=== PATIENT | female | born 1940 | race African-American/Black ===

== ENCOUNTER 2018-03-10 13:09 | Observation (INO) ==
[2018-03-10] MEDS ORDERED: Morphine Inj 4 MG/ML Vial IV.PUSH ONE (15:53)
[2018-03-10] MEDS ORDERED: Etomidate Inj 40 MG/20 ML Vial IV.PUSH ONE (15:59)
--- NOTE | 2018-03-10 16:22 | XR ---
EXAM DATE: 03/10/2018 3:53 PM EDT AGE/SEX: 78 years / Female INDICATIONS: Back pain for 2 weeks getting worse. CLINICAL DATA: This is the patient's initial encounter. Patient reports that signs and symptoms have been present for 2 weeks and indicates a pain score of 5/10. MEDICAL/SURGICAL HISTORY: . Hypertension. Seizures. Lumbar spine fracture. Hysterectomy. Pace maker. [place] [facility] [place]. . FINDINGS: Stable dual lead pacemaker in place. No significant new focal pleural or parenchymal opacities. Cardi omediastinal contours are within normal limits. Bony thorax is grossly intact. CONCLUSION: 1. No acute abnormality or significant interval change. Electronically signed by: Andrew Kulkarni MD 03/10/2018 4:21 PM EDT
[2018-03-10 16:40] LABS: Baso % (Auto) 0.3 % (0.0-2.0); Eos # (Auto) 0.2 th/mm3 (0.0-0.4); Eos % (Auto) 2.3 % (0.0-4.0); Hematocrit 38.3 % (35.0-46.0); Hemoglobin 12.1 gm/dL (11.6-15.3); Lymph # (Auto) 1.6 th/mm3 (1.0-4.8); Lymph % (Auto) 18.2 % (9.0-44.0); Mean Corpuscular HGB Conc 31.7 % (32.0-36.0); Mean Corpuscular Hemoglobin 27.1 pg (27.0-34.0); Mean Corpuscular Volume 85.5 fL (80.0-100.0); Mono # (Auto) 0.7 th/mm3 (0.0-0.9); Mono % (Auto) 8.1 % (0.0-8.0); Neut # (Auto) 6.1 th/mm3 (1.8-7.7); Neut % (Auto) 71.1 % (16.0-70.0); Platelet Count 207 th/mm3 (150-450); Red Blood Count 4.47 mil/mm3 (4.00-5.30); Red Cell Distribution Width 14.6 % (11.6-17.2); White Blood Count 8.6 th/mm3 (4.0-11.0)
--- NOTE | 2018-03-10 16:43 | P.CONNS ---
<Kymberly Harrison - Last Filed: 03/10/18 16:32> History of Present Illness Service: Neurosurgery Primary Care Provider: UNKNOWN History of Present Illness: Ms. Weiner is a 78 year old female who comes to the ED with complaints of 10/10 back pain. She reports she was recently evaluated here at [facility] on with complaints of low back pain. A CT of the lumbar spine was done which showed mild compression fracture at L4 without retropulsion or significant stenosis. She was discharged home with a TLSO brace. Ms. Weiner reports she has suffered previously from low back pain and headaches. She sees Dr. Rizzo for pain management and is being managed with Hydrocodone. She recently lifted a heavy mattress and she developed worsened pain in her low back. She states receiving shots in her low back towards the left side by a Dr. Hammer last Friday but she cannot tell me what kind of injections it is and it only made her pain worse, that was when she went to the ER this past weekend. She reports of pain located in the left lateral low back over the left SI joint region. She denies axial lumbar pain or pain radiating down her extremities. She denies paresthesias, focal weakness, bowel or bladder incontinence. She said she was wearing her TLSO brace at home even in bed. She denies any falls or any other accidents. She has a history of cranial surgery 30 years ago with metal in her head and was told she cannot undergo MRI scans. Neurosurgical evaluation was requested. Review of Systems Constitutional: Reports headache(s), Denies body ache(s), Denies chills, Denies fever(s) Cardiovascular: Denies chest pain, Denies shortness of breath Gastrointestinal: Denies abdominal pain Musculoskeletal: Reports back pain, Reports joint pain, Denies muscle weakness, Denies numbness, Denies radiating pain into limb, Denies tingling PMFSH - History History Provided By: Patient - Medical History Medical History: Medical History (Last Reviewed 03/10/18 @ 15:31 by Hyacinth Jones) Chronic back pain HBP (high blood pressure) History of hysterectomy Pacemaker Seizure - Tobacco History Second Hand Smoke Exposure: No Smoking Status: Never smoker - Alcohol History How Often Do You Have a Drink Containing Alcohol: Never - Substance Use History Substance History: No History of Abuse - Travel History Recent Travel in the [place] Within the Last 8 Weeks: No Recent Travel Out of the Country Within the Last 8 Weeks: No - Immunization History Tetanus Immunization: >5 Years Hx Influenza Vaccine This Season: No Medications and Allergies Allergies Allergy/AdvReac Type Severity Reaction Status Date / Time No Known Allergies Allergy Verified 03/10/18 14:55 Home Medications Medication Instructions Recorded Confirmed Type carbamazepine [Tegretol] 200 mg PO BID 03/07/18 03/10/18 History gabapentin [Neurontin] 300 mg PO BID 03/07/18 03/10/18 History lisinopril 10 mg PO DAILY 03/07/18 03/10/18 History oxycodone-acetaminophen [Percocet] 1 tab PO Q6H PRN 03/07/18 03/10/18 History Active Medications: Active Medications Sodium Chloride (Ns Flush) 2 ml IV.FLUSH UNSCH PRN PRN Reason: FLUSH AFTER USING IV ACCESS Last Admin: 03/10/18 16:16 Dose: 2 ml Exam Vital signs: Vital Signs 03/10/18 13:13 Temperature 98.6 F Pulse Rate 76 Respiratory Rate 18 Blood Pressure 132/67 Pulse Oximetry 98 Intake & Output 03/09/18 03/10/18 03/10/18 18:59 06:59 18:59 Weight 68.039 kg Narrative: GENERAL: Elderly female laying in stretcher bed in no acute distress. SKIN: Warm and dry. HEAD: Atraumatic. Normocephalic. EYES: Pupils equal and round. No scleral icterus. No injection or drainage. ENT: No nasal bleeding or discharge. Mucous membranes pink and moist. NECK: Trachea midline. No JVD. CARDIOVASCULAR: Regular rate and rhythm. RESPIRATORY: No accessory muscle use. Clear to auscultation. Breath sounds equal bilaterally. GASTROINTESTINAL: Abdomen soft, non-tender, nondistended. Hepatic and splenic margins not palpable. MUSCULOSKELETAL: Extremities without clubbing, cyanosis, or edema. No obvious deformities. Pain illicited in deep palpation over the left SI joint. No spinal deformities. NEUROLOGICAL: Awake and alert. No obvious cranial nerve deficits. Motor grossly within normal limits. 5/5 muscle strength in the arms and bilateral iliopsoas, quadriceps, hamstrings, tibialis anterior gastrocsoleus, and extensor hallucis longus. Normal speech. DTRs trace in knees and ankles. Plantars equivocal bilaterally. No ankle clonus. PSYCHIATRIC: Appropriate mood and affect; insight and judgment normal. <Eric Amaya - Last Filed: 03/11/18 08:43> History of Present Illness Primary Care Provider: UNKNOWN History of Present Illness: This is a 78 year old female with severe, 10/10 back pain. She has been recently evaluated here at [facility] on 03/07/18 for low back pain. A CT of the lumbar spine was done which showed mild compression fracture at L4 without retropulsion or significant stenosis. She was unable to undergp an MRI. She was discharged home with a TLSO brace. Ms. Weiner reports she has suffered previously from low back pain for ehich she sees Dr. Rizzo for pain management, and is being managed with Hydrocodone. She recently lifted a heavy mattress and she developed worsened pain in her low back. She states receiving shots in her low back towards the left side by a Dr. Hammer last Friday but she cannot tell me what kind of injections it is and it only made her pain worse, that was when she went to the ER this past weekend. She reports of pain located in the left lateral low back over the left SI joint region. She denies axial lumbar pain or pain radiating down her extremities. She denies paresthesias, focal weakness, bowel or bladder incontinence. She said she was wearing her TLSO brace at home even in bed. She denies any falls or any other accidents. She has a history of cranial surgery 30 years ago with metal in her head and was told she cannot undergo an MRI Neurosurgical consultation was requested. Review of Systems Constitutional: Reports headache(s), Denies anorexia, Denies body ache(s), Denies chills, Denies daytime sleepiness, Denies excessive sweating, Denies fatigue, Denies fever(s), Denies increased appetite, Denies lack of energy, Denies malaise, Denies night sweats, Denies weakness, Denies weight gain, Denies weight loss, Denies other Eyes: Denies blind spots, Denies blurry vision, Denies bulging eyes, Denies change in vision, Denies double vision, Denies discharge, Denies dry eyes, Denies floaters, Denies irritation, Denies itchy eyes, Denies loss of vision, Denies pain, Denies requires corrective lenses, Denies sensitivity to light, Denies other Ears, Nose, Mouth, and Throat: Denies abnormal hearing, Denies bleeding gums, Denies bad breath, Denies change in voice, Denies dental pain, Denies difficulty swallowing, Denies dizziness, Denies dry mouth, Denies ear discharge , Denies ear pain, Denies facial pain, Denies headache(s), Denies hearing loss, Denies hoarseness, Denies lip swelling, Denies nosebleed, Denies mouth lesions, Denies mouth pain, Denies nasal congestion, Denies nasal discharge, Denies nasal obstruction, Denies nasal trauma, Denies neck lump, Denies neck pain, Denies nose pain, Denies pain with swallowing, Denies poor balance, Denies post nasal drip, Denies ringing in the ears, Denies sinus pain, Denies sinus pressure , Denies sore throat, Denies throat swelling, Denies tongue swelling, Denies other Cardiovascular: Denies chest pain, Denies chest pain at rest, Denies chest pain with activity, Denies excessive sweating, Denies fainting, Denies fast heart rate, Denies foot swelling, Denies generalized swelling, Denies irregular heart rhythm, Denies leg pain with activity, Denies leg sores, Denies leg swelling, Denies lightheadedness, Denies radiating jaw, neck or arm pain, Denies rapid, pounding, or irregular heartbeat, Denies shortness of breath, Denies shortness of breath with activity, Denies shortness of breath when lying down, Denies shortness of breath causing sudden awakening, Denies slow heart rate, Denies other Respiratory: Denies change in phlegm color, Denies chest congestion, Denies cough, Denies coughing up blood, Denies excessive phlegm production, Denies pain on inspiration, Denies pain with cough, Denies shortness of breath, Denies shortness of breath with activity, Denies snoring, Denies stridor, Denies wheezing, Denies other Gastrointestinal: Denies abdominal pain, Denies belching, Denies black, tarry stools, Denies bloating, Denies bright, red blood in stools, Denies change in bowel habits, Denies constant urge to pass stool, Denies change in stools, Denies coffee ground vomit, Denies constipation, Denies cramping, Denies difficulty swallowing, Denies excessive passing of gas, Denies feeling full early, Denies heartburn, Denies incontinent of stools, Denies loose stools, Denies nausea, Denies pain with swallowing, Denies vomiting, Denies vomiting blood, Denies other Genitourinary: Denies abnormal periods, Denies abnormal vaginal bleeding, Denies absent period, Denies bleeding between periods, Denies blood in urine, Denies difficulty starting urination, Denies difficulty urinating, Denies dribbling after urination, Denies frequent nighttime urination, Denies genital itching, Denies genital lesions, Denies heavy periods, Denies hot flashes, Denies light periods, Denies nipple discharge, Denies painful intercourse, Denies painful periods, Denies painful urination, Denies pelvic pain, Denies prolapse symptoms, Denies sexual problems, Denies side pain, Denies urinary incontinence, Denies urinary urgency, Denies vaginal discharge, Denies vaginal dryness, Denies vaginal odor, Denies vaginal itching, Denies other Musculoskeletal: Reports back pain, Reports joint pain Skin/Breast: Denies acne, Denies bleeding lesions, Denies boil, Denies breast swelling, Denies breast skin changes, Denies breast pain, Denies breast lump, Denies change in breast shape, Denies change in hair, Denies change in skin color, Denies changing lesions, Denies dry skin, Denies excessive hair growth, Denies hair loss, Denies itching, Denies lesions, Denies nail changes, Denies new lesions, Denies nipple discharge, Denies non-healing lesions, Denies redness , Denies sensitivity to light, Denies rash, Denies skin pain, Denies skin ulcer , Denies sores, Denies stretch unger, Denies unusual bruising, Denies wounds, Denies yellowing of the skin, Denies other Neurologic: Denies abnormal hearing, Denies abnormal movements, Denies abnormal speech, Denies abnormal walking, Denies behavioral changes, Denies burning sensations, Denies confusion, Denies dizziness, Denies fainting, Denies frequent falls, Denies headache(s), Denies lack of coordination, Denies localized weakness, Denies loss of vision, Denies memory loss, Denies numbness, Denies other visual disturbances, Denies radiating pain, Denies restless legs, Denies convulsions, Denies seizure-like activity, Denies sensory deficit, Denies tingling, Denies tingling/numbness/burning sensations, Denies tremor(s), Denies unsteadiness, Denies weakness, Denies other Psychiatric: Denies abnormal sleep pattern, Denies anxiety, Denies behavioral changes, Denies change in appetite, Denies change in sex drive, Denies confusion , Denies depression, Denies difficulty concentrating, Denies hearing things others do not hear, Denies hopelessness, Denies irritability, Denies lack of enjoyment, Denies memory loss, Denies mood swings, Denies panic attacks, Denies paranoia, Denies seeing things others do not see, Denies sensing things others do not sense, Denies tactile hallucinations, Denies thoughts of hurting/killing others, Denies thoughts of hurting/killing yourself, Denies other Endocrine: Denies cold intolerance, Denies excessive sweating, Denies flushing, Denies heat intolerance, Denies increased hunger, Denies increased thirst, Denies increased urination, Denies rapid, pounding, or irregular heartbeat, Denies other PMFSH - History History Provided By: Patient - Medical History Medical History: Medical History (Last Reviewed 03/11/18 @ 08:40 by Eric Amaya MD) Chronic back pain HBP (high blood pressure) History of hysterectomy Pacemaker Seizure - Family History Family History: Family History (Last Updated 03/11/18 @ 08:40 by Eric Amaya MD) Other Family history non-contributory No pertinent family history - Social History I have reviewed the patient's Social History: Yes - Tobacco History Second Hand Smoke Exposure: No Tobacco Use In Past 30 Days: No Smoking Status: Never smoker - Alcohol History How Often Do You Have a Drink Containing Alcohol: Never - Substance Use History Substance History: No History of Abuse - Travel History Recent Travel in the [facility] Within the Last 8 Weeks: No Recent Travel Out of the Country Within the Last 8 Weeks: No Medications and Allergies Active Medications: Active Medications Carbamazepine (Tegretol) 200 mg PO BID [facility] Last Admin: 03/11/18 08:30 Dose: 200 mg Gabapentin (Neurontin) 300 mg PO BID [facility] Last Admin: 03/11/18 08:30 Dose: 300 mg Dextrose/Sodium Chloride (D5w/Normal Saline Inj) 1,000 mls @ 84 mls/hr IV.CONT .[id number] [facility] Last Admin: 03/11/18 08:29 Dose: Not Given Ceftriaxone Sodium 1,000 mg/ (Sodium Chloride) 100 mls @ 200 mls/hr IV.SIG Q24H [facility] Last Infusion: 03/10/18 22:30 Dose: Infused Morphine Sulfate (Morphine Inj) 2 mg IV.PUSH Q4H PRN PRN Reason: pain level 3-10 Sodium Chloride (Ns Flush) 2 ml IV.FLUSH BID [facility] Last Admin: 03/11/18 08:30 Dose: Not Given Sodium Chloride (Ns Flush) 2 ml IV.FLUSH PRN PRN PRN Reason: FLUSH AFTER USING IV ACCESS Exam Vital signs: Vital Signs 03/10/18 13:13 03/10/18 15:53 03/10/18 16:00 Temperature 98.6 F 97.8 F Pulse Rate 76 59 L 59 L Respiratory Rate 18 18 Blood Pressure 132/67 154/67 H Pulse Oximetry 98 98 99 03/10/18 16:20 03/10/18 18:21 03/10/18 20:00 Temperature 97.8 F Pulse Rate 60 Respiratory Rate 17 16 Blood Pressure 140/83 Pulse Oximetry 98 95 03/10/18 21:02 03/10/18 22:29 03/11/18 00:00 Temperature 97.7 F 97.7 F Pulse Rate 63 73 Respiratory Rate 16 17 Blood Pressure 141/62 H 98/56 L Pulse Oximetry 94 L 95 95 03/11/18 05:10 03/11/18 07:32 Temperature 98.4 F 97.5 F L Pulse Rate 66 65 Respiratory Rate 16 20 Blood Pressure 114/53 L 113/55 L Pulse Oximetry 96 99 Intake & Output 03/10/18 03/11/18 03/11/18 18:59 06:59 18:59 Intake Total 100 / 100 Output Total 500 / 500 Balance -500 / -500 100 / 100 Weight 68.039 kg Intake: IV 100 / 100 Rocephin Inj 1,000 MG In NS Inj 100 / 100 100 ML @ 200 mls/hr IV.SIG Q24H [facility] Rx#:[id number] Output: Urine 500 / 500 Other: # Voids 1 2 Date of Last Bowel Movement 03/10/18 Narrative: GENERAL: Ms Weiner is in no acute distress. SKIN: Warm and dry. HEAD: Atraumatic. Normocephalic. EYES: Pupils equal and round. No scleral icterus. No injection or drainage. ENT: No nasal bleeding or discharge. Mucous membranes pink and moist. NECK: Trachea midline. No JVD. CARDIOVASCULAR: Regular rate and rhythm. RESPIRATORY: No accessory muscle use. Clear to auscultation. Breath sounds equal bilaterally. GASTROINTESTINAL: Abdomen soft, non-tender, nondistended. Hepatic and splenic margins not palpable. MUSCULOSKELETAL: Extremities without clubbing, cyanosis, or edema. No obvious deformities. Pain illicited in deep palpation over the left SI joint. No spinal deformities. NEUROLOGICAL: Awake and alert. No obvious cranial nerve deficits. Motor grossly within normal limits. 5/5 muscle strength in the arms and bilateral iliopsoas, quadriceps, hamstrings, tibialis anterior gastrocsoleus, and extensor hallucis longus. Normal speech. DTRs trace in knees and ankles. Plantars equivocal bilaterally. No ankle clonus. Results - Laboratory Findings CBC and BMP: 03/10/18 16:00 03/11/18 03:20 Abnormal lab findings: Abnormal Labs 03/10/18 03/10/18 03/10/18 16:00 16:00 18:00 MCHC 31.7 L Neut % (Auto) 71.1 H [place] % (Auto) 8.1 H Sodium 128 L Potassium 6.2 H Chloride 94 L BUN 46 H Creatinine 1.27 H Estimated GFR 49 L Alkaline Phosphatase 159 H Urine Clarity Cloudy H Ur Leukocyte Esterase Large H Urine WBC 177 H Urine Bacteria Many H Urine Mucus Few H 03/11/18 03:20 MCHC Neut % (Auto) [place] % (Auto) Sodium 128 L Potassium 5.3 H D Chloride 92 L BUN 48 H Creatinine 1.42 H Estimated GFR 43 L Alkaline Phosphatase 148 H Urine Clarity Ur Leukocyte Esterase Urine WBC Urine Bacteria Urine Mucus Assessment and Plan - Plan Neuro: neuro checks in a serial fashion. Possible pain related to a L4 fracture , versus pain related to strain in her sacroiliac joint. Recommend upright flexion extension xrays Pulmonary: aggressive pulmonary toilette, nasotracheal suction, and breathing treatments with nebulizers. Daily PT and OT Renal: monitor closely urine output, BUN and creatinine Endocrine: Monitor serial Acu checks and SSI as needed in detail ID monitor for signs of infection Protonix for stress ulcer prophylaxis Carmelo hose and SCD's for DVT prophylaxis Further recommendations will be provided depending on the patient's clinical evaluation and follow up studies.
[2018-03-10 16:58] LABS: Alkaline Phosphatase 159 U/L (45-117); Total Protein 8.1 g/dL (6.4-8.2)
[2018-03-10 17:00] LABS: Alanine Aminotransferase 38 U/L (10-53); Albumin 3.5 g/dL (3.4-5.0); Anion Gap 8 meq/L (5-15); Aspartate Aminotransferase 31 U/L (15-37); Blood Urea Nitrogen 46 mg/dL (7-18); Calcium 10.1 mg/dL (8.5-10.1); Carbon Dioxide 26.1 meq/L (21.0-32.0); Chloride 94 meq/L (98-107); Glomerular Filtration Rate 49 mL/min (>89); Glucose,Random 90 mg/dL (74-106); Potassium 6.2 meq/L (3.5-5.1); Sodium 128 meq/L (136-145)
--- NOTE | 2018-03-10 17:28 | ED ---
HPI General Chief complaint: Back Pain/Injury Stated complaint: Back Pain Time Seen by Provider: 03/10/18 14:56 History of Present Illness HPI narrative: Patient 78-year-old female diagnosed with compression fracture of L4 seemingly without injury by me a few days ago who presents emergency department for evaluation of continued back pain despite pain medicine. She called her primary care physician who urged her to return to the emergency department. She is also trying to get into some spinal surgeons without success. Pain is moderate, not associated with any weakness of lower extremities, no numbness and tingling over her genitalia, no saddle anesthesia, no difficulty urinating. Related Data Home Medications Medication Instructions Recorded Confirmed carbamazepine [Tegretol] 200 mg PO TID 03/07/18 03/11/18 gabapentin [Neurontin] 300 mg PO BID 03/07/18 03/10/18 lisinopril 10 mg PO DAILY 03/07/18 03/10/18 oxycodone-acetaminophen [Percocet] 1 tab PO Q6H PRN 03/07/18 03/10/18 levothyroxine 25 mcg PO DAILY 03/11/18 03/11/18 metoprolol tartrate 25 mg PO BID 03/11/18 03/11/18 primidone 250 mg PO HS 03/11/18 03/11/18 Previous Rx's Medication Instructions Recorded hydrocodone-acetaminophen [[place]] 1 tab PO Q6H PRN #20 tab 03/11/18 Allergies Allergy/AdvReac Type Severity Reaction Status Date / Time No Known Allergies Allergy Verified 03/10/18 14:55 Review of Systems ROS: all other systems reviewed are negative Neurologic Denies numbness and Denies tingling PMFSH Family History Family History Other Family history non-contributory No pertinent family history Social History Social History Substance History: No History of Abuse Second Hand Smoke Exposure: No Smoking Status: Never smoker How Often Do You Have a Drink Containing Alcohol: Never Recent Travel in [place] within the Last 8 Weeks: No Recent Out of Country Travel within the Last 8 Weeks: No Immunization History Tetanus Immunization: >5 Years Hx Influenza Vaccine This Season: No Exam Narrative Exam Narrative: GENERAL: Well-developed quite pleasant female in no distress. SKIN: Focused skin assessment warm/dry. HEAD: Atraumatic. Normocephalic. EYES: Pupils equal and round. No scleral icterus. No injection or drainage. ENT: No nasal bleeding or discharge. Mucous membranes pink and moist. NECK: Trachea midline. No JVD. CARDIOVASCULAR: Regular rate and rhythm. No murmur appreciated. RESPIRATORY: No accessory muscle use. Clear to auscultation. Breath sounds equal bilaterally. GASTROINTESTINAL: Abdomen soft, non-tender, nondistended. Hepatic and splenic margins not palpable. MUSCULOSKELETAL: No obvious deformities. No clubbing. No cyanosis. No edema. There is still some minimal midline tenderness of the lumbar spine and the lower portions. Pulse motor and sensory intact distally in all 4 extremities. NEUROLOGICAL: Awake and alert. No obvious cranial nerve deficits. Motor grossly within normal limits. Normal speech. PSYCHIATRIC: Appropriate mood and affect; insight and judgment normal. Course Initial Documented Vital Signs Temperature 98.6 F 03/10/18 13:13 Pulse Rate 76 03/10/18 13:13 Respiratory Rate 18 03/10/18 13:13 Blood Pressure 132/67 03/10/18 13:13 Pulse Oximetry 98 03/10/18 13:13 Last Documented Vital Signs Temperature 97.5 F L 03/11/18 11:28 Pulse Rate 83 03/11/18 11:28 Respiratory Rate 20 03/11/18 11:28 Blood Pressure 147/67 H 03/11/18 11:28 Pulse Oximetry 96 03/11/18 11:28 Medical Decision Making MDM Narrative Medical decision making narrative: Patient seen and examined by me, continued pain after I diagnosed with an L4 fracture a few days ago. Please see my note from a few days ago, CAT scan. She is neurologically intact, no red flag signs symptoms for cauda equina. Discussed with Dr. Amaya who would like the patient placed obscure his consultation. Think that is reasonable. Awaiting medicine to call back to admit Medical Screen Exam Complete: Yes Emergency Medical Condition: Yes Lab Data Result diagrams: 03/10/18 16:00 03/11/18 03:20 Lab Results 03/10/18 03/10/18 03/10/18 Range/Units 16:00 16:00 18:00 WBC 8.6 (4.0-11.0) th/mm3 RBC 4.47 (4.00-5.30) mil/mm3 Hgb 12.1 (11.6-15.3) gm/dL Hct 38.3 (35.0-46.0) % MCV 85.5 (80.0-100.0) fL MCH 27.1 (27.0-34.0) pg MCHC 31.7 L (32.0-36.0) % RDW 14.6 (11.6-17.2) % Plt Count 207 (150-450) th/mm3 MPV 8.0 (7.0-11.0) fL Neut % (Auto) 71.1 H (16.0-70.0) % Lymph % (Auto) 18.2 (9.0-44.0) % [place] % (Auto) 8.1 H (0.0-8.0) % Eos % (Auto) 2.3 (0.0-4.0) % Baso % (Auto) 0.3 (0.0-2.0) % Neut # (Auto) 6.1 (1.8-7.7) th/mm3 Lymph # (Auto) 1.6 (1.0-4.8) th/mm3 [place] # (Auto) 0.7 (0.0-0.9) th/mm3 Eos # (Auto) 0.2 (0.0-0.4) th/mm3 Baso # (Auto) 0.0 (0.0-0.2) th/mm3 WBC Differential . Differential Comment Auto diff final Sodium 128 L (136-145) meq/L Potassium 6.2 H (3.5-5.1) meq/L Chloride 94 L (98-107) meq/L Carbon Dioxide 26.1 (21.0-32.0) meq/L Anion Gap 8 (5-15) meq/L BUN 46 H (7-18) mg/dL Creatinine 1.27 H (0.50-1.00) mg/dL Estimated GFR 49 L (>89) mL/min Random Glucose 90 (74-106) mg/dL Calcium 10.1 (8.5-10.1) mg/dL Total Bilirubin 0.2 (0.2-1.0) mg/dL AST 31 (15-37) U/L ALT 38 (10-53) U/L Alkaline Phosphatase 159 H (45-117) U/L Total Protein 8.1 (6.4-8.2) g/dL Albumin 3.5 (3.4-5.0) g/dL Urine Color Red (Yellw/Straw) Urine Clarity Cloudy H (Clear) Urine pH 6.0 (5.0-8.5) Ur Specific [place] 1.013 (1.002-1.035) Urine Protein Negative (Neg-Trace) mg/dL Urine Glucose (UA) Negative (Negative) mg/dL Urine Ketones Negative (Negative) mg/dL Urine Occult Blood Negative (Negative) Urine Nitrate Negative (Negative) Urine Bilirubin Negative (Negative) Urine Urobilinogen Less than 2 (Less than 2) mg/dL Ur Leukocyte Esterase Large H (Negative) Urine RBC 3 (0-3) /hpf Urine WBC 177 H (0-5) /hpf Ur Squamous Epith Cells 4 (0-5) /hpf Urine Bacteria Many H (None) /hpf Urine Mucus Few H (Occasional) /lpf Ur Microscopic Review Not Reportable 03/11/18 Range/Units 03:20 WBC (4.0-11.0) th/mm3 RBC (4.00-5.30) mil/mm3 Hgb (11.6-15.3) gm/dL Hct (35.0-46.0) % MCV (80.0-100.0) fL MCH (27.0-34.0) pg MCHC (32.0-36.0) % RDW (11.6-17.2) % Plt Count (150-450) th/mm3 MPV (7.0-11.0) fL Neut % (Auto) (16.0-70.0) % Lymph % (Auto) (9.0-44.0) % [place] % (Auto) (0.0-8.0) % Eos % (Auto) (0.0-4.0) % Baso % (Auto) (0.0-2.0) % Neut # (Auto) (1.8-7.7) th/mm3 Lymph # (Auto) (1.0-4.8) th/mm3 [place] # (Auto) (0.0-0.9) th/mm3 Eos # (Auto) (0.0-0.4) th/mm3 Baso # (Auto) (0.0-0.2) th/mm3 WBC Differential Differential Comment Sodium 128 L (136-145) meq/L Potassium 5.3 H D (3.5-5.1) meq/L Chloride 92 L (98-107) meq/L Carbon Dioxide 28.3 (21.0-32.0) meq/L Anion Gap 8 (5-15) meq/L BUN 48 H (7-18) mg/dL Creatinine 1.42 H (0.50-1.00) mg/dL Estimated GFR 43 L (>89) mL/min Random Glucose 87 (74-106) mg/dL Calcium 9.7 (8.5-10.1) mg/dL Total Bilirubin 0.3 (0.2-1.0) mg/dL AST 26 (15-37) U/L ALT 31 (10-53) U/L Alkaline Phosphatase 148 H (45-117) U/L Total Protein 7.8 (6.4-8.2) g/dL Albumin 3.4 (3.4-5.0) g/dL Urine Color (Yellw/Straw) Urine Clarity (Clear) Urine pH (5.0-8.5) Ur Specific [place] (1.002-1.035) Urine Protein (Neg-Trace) mg/dL Urine Glucose (UA) (Negative) mg/dL Urine Ketones (Negative) mg/dL Urine Occult Blood (Negative) Urine Nitrate (Negative) Urine Bilirubin (Negative) Urine Urobilinogen (Less than 2) mg/dL Ur Leukocyte Esterase (Negative) Urine RBC (0-3) /hpf Urine WBC (0-5) /hpf Ur Squamous Epith Cells (0-5) /hpf Urine Bacteria (None) /hpf Urine Mucus (Occasional) /lpf Ur Microscopic Review Imaging Data Radiologist's impression: Lumbar Spine X-Ray 03/10/18 00:00 CONCLUSION: 1. Normal alignment of the L4 vertebral body in neutral, flexion, extension. 2. Grade 1 anterolisthesis of L5 in flexion only. Chest X-Ray 03/10/18 15:53 CONCLUSION: 1. No acute abnormality or significant interval change. Discharge Plan Discharge Disposition Patient Disposition: 01 Discharge Home Discharge Condition Condition: Stable Discharge Order Discharge Orders: Discharge Order (Routine); Ordered 03/11/18 Ordered By: Sharri Salazar Neurosurgery Clear for Discharge (Routine); Ordered 03/11/18 Ordered By: Kymberly Harrison Discharge Details Anticipated Discharge Date: 03/11/18 Physicians Team ED Provider: Kennedy Shaffer Primary Care Provider: UNKNOWN, Attending Provider: German Flanagan Other Providers: Eric Amaya ED Status: Left Department Discharge Information Discharge Date/Time: 03/10/18 20:39
[2018-03-10 18:21] LABS: Bacteria,Urine Many /hpf; Bilirubin,Urine Negative (Negative); Clarity,Urine Cloudy (Clear); Color,Urine Red (Yellw/Straw); Glucose,Urine (UA) Negative (Negative); Leukocyte Esterase,Urine Large (Negative); Mucus,Urine Few /lpf (Occasional); Nitrite,Urine Negative (Negative); Specific Gravity,Urine 1.013 (1.002-1.035); Squamous Epithelial Cell,Urine 4 /hpf (0-5)
[2018-03-10] MEDS ORDERED: Sodium Chloride 0.9% 2 ML Flush PRN IV.FLUSH (19:08)
--- NOTE | 2018-03-10 19:21 | XR ---
EXAM DATE: 03/10/2018 12:00 AM EDT AGE/SEX: 78 years / Female INDICATIONS: Evaluate L4 fracture. CLINICAL DATA: This is the patient's sequela encounter. Patient reports that signs and symptoms have been present for 3 days and indicates a pain score of 5/10. MEDICAL/SURGICAL HISTORY: . Hypertension. Seizures. . Hysterectomy. COMPARISON: No prior exams available for comparison. FINDINGS: Neutral, flexion, and extension views of the lumbar spine performed. 30% compression deformities of t he superior endplate of L4 and L5 is similar in appearance to recent CT. There is normal alignment of the vertebral bodies of the lumbar spine in neutral position. The alignment of L4 is maintained in e xtension and flexion. At L5-S1, there is a 5 mm anterolisthesis of L5 in flexion. CONCLUSION: 1. Normal alignment of the L4 vertebral body in neutral, flexion, extension. 2. Grade 1 anterolisthesis of L5 in flexion only. Electronically signed by: Lj Hugo MD 03/10/2018 7:20 PM EDT
[2018-03-10] MEDS ORDERED: Morphine Sulfate Inj 2 MG/ML Vial IV.PUSH PRN (20:58)
[2018-03-10] MEDS: Dextrose 5%/NaCl 0.9% Inj 1,000 ML IV.CONT SCH (21:58)
[2018-03-10] MEDS: Gabapentin 300 MG Capsule PO SCH (21:59)
[2018-03-10] MEDS: carBAMazepine 200 MG Tablet PO SCH (21:59)
[2018-03-10] MEDS: Sodium Chloride 0.9% 2 ML Flush BID IV.FLUSH SCH (22:00)
[2018-03-11 06:06] LABS: Alanine Aminotransferase 31 U/L (10-53); Albumin 3.4 g/dL (3.4-5.0); Alkaline Phosphatase 148 U/L (45-117); Anion Gap 8 meq/L (5-15); Aspartate Aminotransferase 26 U/L (15-37); Blood Urea Nitrogen 48 mg/dL (7-18); Calcium 9.7 mg/dL (8.5-10.1); Carbon Dioxide 28.3 meq/L (21.0-32.0); Chloride 92 meq/L (98-107); Glomerular Filtration Rate 43 mL/min (>89); Glucose,Random 87 mg/dL (74-106); Potassium 5.3 meq/L (3.5-5.1); Sodium 128 meq/L (136-145); Total Protein 7.8 g/dL (6.4-8.2)
[2018-03-11 07:35] VITALS: RESP 20; TEMP 97.5
[2018-03-11] MEDS: Dextrose 5%/NaCl 0.9% Inj 1,000 ML IV.CONT SCH (08:29)
[2018-03-11] MEDS: Sodium Chloride 0.9% 2 ML Flush BID IV.FLUSH SCH (08:30)
[2018-03-11] MEDS: carBAMazepine 200 MG Tablet PO SCH (08:30)
[2018-03-11] MEDS: Gabapentin 300 MG Capsule PO SCH (08:30)
--- NOTE | 2018-03-11 09:36 | P.HP ---
<Sharri Salazar - Last Filed: 03/11/18 12:25> History of Present Illness Primary Care Physician: Dr. 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 Patient initially presented to [facility] emergency department on for evaluation of 03/25 lower back pain. At that time patient reported she has had ongoing back pain for years but lifted a heavy mattress and at that point the back pain worsened. Patient also reported she had spinal injections by outpatient Dr. Rizzo 03/03/18 which did not relieve the pain therefore she proceeded to the emergency department for further evaluation and treatment. At that time patient was found to have a mild acute L4 compression fracture as well as nonacute L5 superior endplate compression fracture and was discharged home with TLSO brace. Patient returned to the [facility] emergency department 03/10/2018 with complaints of increasing back pain. Patient denies radiation of pain down her spine, numbness or tingling around her groin or genital area, saddle anesthesia, difficulties with urination or incontinence, difficulties in passing stool or incontinence. Patient also denies shortness of breath chest pain nausea vomiting diarrhea constipation fevers or chills. PMH: arthritis, cervical radiculopathy, chronic pain, diverticulosis, gastric reflux , hypertension, hyperparathyroidism, hypothyroidism, lumbar degenerative disc disease, lumbar radiculopathy, paroxysmal SVT, sick sinus syndrome s/p cardiac pacemaker, seizure disorder and osteoporosis PSxH: Right temporal craniotomy subdural bur holes, complete colonoscopy, hip surgery , hysterectomy, spinal injections, cardiac pacemaker 07/06/13 Social history: Patient is lives alone Denies EtOH use Former tobacco use FMH: Cardiac disorder and cataracts - Diagnosis (1) Closed compression fracture of L4 lumbar vertebra Review of Systems All other systems reviewed negative except as stated in HPI [facility] - History History Provided By: Patient - Medical History Medical History: Medical History (Last Reviewed 03/11/18 @ 08:59 by Scottie Rolle) Chronic back pain HBP (high blood pressure) History of hysterectomy Pacemaker Seizure - Family History Family History: Family History (Last Updated 03/11/18 @ 08:40 by Eric Amaya MD) Other Family history non-contributory No pertinent family history - Tobacco History Second Hand Smoke Exposure: No Tobacco Use In Past 30 Days: No Smoking Status: Never smoker - Alcohol History How Often Do You Have a Drink Containing Alcohol: Never - Substance Use History Substance History: No History of Abuse - Travel History Recent Travel in the [place] Within the Last 8 Weeks: No Recent Travel Out of the Country Within the Last 8 Weeks: No - Immunization History Tetanus Immunization: >5 Years Hx Influenza Vaccine This Season: No Medications and Allergies Allergies Allergy/AdvReac Type Severity Reaction Status Date / Time No Known Allergies Allergy Verified 03/10/18 14:55 Home Medications Medication Instructions Recorded Confirmed Type carbamazepine [Tegretol] 200 mg PO TID 03/07/18 03/11/18 History gabapentin [Neurontin] 300 mg PO BID 03/07/18 03/10/18 History lisinopril 10 mg PO DAILY 03/07/18 03/10/18 History oxycodone-acetaminophen [Percocet] 1 tab PO Q6H PRN 03/07/18 03/10/18 History levothyroxine 25 mcg PO DAILY 03/11/18 03/11/18 History metoprolol tartrate 25 mg PO BID 03/11/18 03/11/18 History primidone 250 mg PO HS 03/11/18 03/11/18 History Active Medications: Active Medications Carbamazepine (Tegretol) 200 mg PO BID [facility] Last Admin: 03/11/18 08:30 Dose: 200 mg Gabapentin (Neurontin) 300 mg PO BID [facility] Last Admin: 03/11/18 08:30 Dose: 300 mg Dextrose/Sodium Chloride (D5w/Normal Saline Inj) 1,000 mls @ 84 mls/hr IV.CONT .[id number] [facility] Last Admin: 03/11/18 08:29 Dose: Not Given Ceftriaxone Sodium 1,000 mg/ (Sodium Chloride) 100 mls @ 200 mls/hr IV.SIG Q24H [facility] Last Infusion: 03/10/18 22:30 Dose: Infused Morphine Sulfate (Morphine Inj) 2 mg IV.PUSH Q4H PRN PRN Reason: pain level 3-10 Sodium Chloride (Ns Flush) 2 ml IV.FLUSH BID [facility] Last Admin: 03/11/18 08:30 Dose: Not Given Sodium Chloride (Ns Flush) 2 ml IV.FLUSH PRN PRN PRN Reason: FLUSH AFTER USING IV ACCESS Exam Vital signs: Vital Signs 03/10/18 13:13 03/10/18 15:53 03/10/18 16:00 Temperature 98.6 F 97.8 F Pulse Rate 76 59 L 59 L Respiratory Rate 18 18 Blood Pressure 132/67 154/67 H Pulse Oximetry 98 98 99 03/10/18 16:20 03/10/18 18:21 03/10/18 20:00 Temperature 97.8 F Pulse Rate 60 Respiratory Rate 17 16 Blood Pressure 140/83 Pulse Oximetry 98 95 03/10/18 21:02 03/10/18 22:29 03/11/18 00:00 Temperature 97.7 F 97.7 F Pulse Rate 63 73 Respiratory Rate 16 17 Blood Pressure 141/62 H 98/56 L Pulse Oximetry 94 L 95 95 03/11/18 05:10 03/11/18 07:32 Temperature 98.4 F 97.5 F L Pulse Rate 66 65 Respiratory Rate 16 20 Blood Pressure 114/53 L 113/55 L Pulse Oximetry 96 99 Intake & Output 03/10/18 03/11/18 03/11/18 18:59 06:59 18:59 Intake Total 100 / 100 Output Total 500 / 500 Balance -500 / -500 100 / 100 Weight 68.039 kg Intake: IV 100 / 100 Rocephin Inj 1,000 MG In NS Inj 100 / 100 100 ML @ 200 mls/hr IV.SIG Q24H [facility] Rx#:[id number] Output: Urine 500 / 500 Other: # Voids 1 2 Date of Last Bowel Movement 03/10/18 Narrative: GENERAL: This is a well-nourished, well-developed patient, in no apparent distress. CARDIOVASCULAR: Regular rate and rhythm RESPIRATORY: Clear to auscultation. Breath sounds equal bilaterally. GASTROINTESTINAL: Abdomen soft, non-tender, nondistended. Normal active bowel sounds MUSCULOSKELETAL: Extremities without clubbing, cyanosis, or edema. NEURO: Alert & Oriented x4 to person, place, time, situation. Moves all ext x4 Results - Labs CBC & Chem 7: 03/10/18 16:00 03/11/18 03:20 Labs: Laboratory Results - last 24 hr 03/10/18 03/10/18 03/10/18 16:00 16:00 18:00 WBC 8.6 RBC 4.47 Hgb 12.1 Hct 38.3 MCV 85.5 MCH 27.1 MCHC 31.7 L RDW 14.6 Plt Count 207 MPV 8.0 Neut % (Auto) 71.1 H Lymph % (Auto) 18.2 Jenkins % (Auto) 8.1 H Eos % (Auto) 2.3 Baso % (Auto) 0.3 Neut # (Auto) 6.1 Lymph # (Auto) 1.6 Jenkins # (Auto) 0.7 Eos # (Auto) 0.2 Baso # (Auto) 0.0 WBC Differential . Differential Comment Auto diff final Sodium 128 L Potassium 6.2 H Chloride 94 L Carbon Dioxide 26.1 Anion Gap 8 BUN 46 H Creatinine 1.27 H Estimated GFR 49 L Random Glucose 90 Calcium 10.1 Total Bilirubin 0.2 AST 31 ALT 38 Alkaline Phosphatase 159 H Total Protein 8.1 Albumin 3.5 Urine Color Red Urine Clarity Cloudy H Urine pH 6.0 Ur Specific [place] 1.013 Urine Protein Negative Urine Glucose (UA) Negative Urine Ketones Negative Urine Occult Blood Negative Urine Nitrate Negative Urine Bilirubin Negative Urine Urobilinogen Less than 2 Ur Leukocyte Esterase Large H Urine RBC 3 Urine WBC 177 H Ur Squamous Epith Cells 4 Urine Bacteria Many H Urine Mucus Few H Ur Microscopic Review Not Reportable 03/11/18 03:20 WBC RBC Hgb Hct MCV MCH MCHC RDW Plt Count MPV Neut % (Auto) Lymph % (Auto) Jenkins % (Auto) Eos % (Auto) Baso % (Auto) Neut # (Auto) Lymph # (Auto) Jenkins # (Auto) Eos # (Auto) Baso # (Auto) WBC Differential Differential Comment Sodium 128 L Potassium 5.3 H D Chloride 92 L Carbon Dioxide 28.3 Anion Gap 8 BUN 48 H Creatinine 1.42 H Estimated GFR 43 L Random Glucose 87 Calcium 9.7 Total Bilirubin 0.3 AST 26 ALT 31 Alkaline Phosphatase 148 H Total Protein 7.8 Albumin 3.4 Urine Color Urine Clarity Urine pH Ur Specific [place] Urine Protein Urine Glucose (UA) Urine Ketones Urine Occult Blood Urine Nitrate Urine Bilirubin Urine Urobilinogen Ur Leukocyte Esterase Urine RBC Urine WBC Ur Squamous Epith Cells Urine Bacteria Urine Mucus Ur Microscopic Review - Imaging Impressions Lumbar Spine X-Ray 03/10/18 00:00 CONCLUSION: 1. Normal alignment of the L4 vertebral body in neutral, flexion, extension. 2. Grade 1 anterolisthesis of L5 in flexion only. Chest X-Ray 03/10/18 15:53 CONCLUSION: 1. No acute abnormality or significant interval change. Caprini VTE Risk Assessment Caprini VTE Risk Assessment: Moderate/High Risk (score >= 2) Caprini Risk Assessment Model: Point Value = 1 Point Value = 2 Point Value = 3 Point Value = 5 Age 41-60 Minor surgery BMI > 25 kg/m2 Swollen legs Varicose veins or History of unexplained or recurrent spontaneous Oral contraceptives or hormone replacement Sepsis (< 1 month) Serious lung disease, including pneumonia (< 1 month) Abnormal pulmonary function Acute myocardial infarction Congestive heart failure (< 1 month) History of inflammatory bowel disease Medical patient at bed rest Age 61-74 Arthroscopic surgery Major open surgery (> 45 min) Laparoscopic surgery (> 45 min) Malignancy Confined to bed (> 72 hours) Immobilizing plaster cast Central venous access Age >= 75 History of VTE Family history of VTE Factor V Leiden Prothrombin [id number] Lupus anticoagulant Anticardiolipin antibodies Elevated serum homocysteine Heparin-induced thrombocytopenia Other congenital or acquired thrombophilia Stroke (< 1 month) Elective arthroplasty Hip, pelvis, or leg fracture Acute spinal cord injury (< 1 month) Prophylaxis Regimen: Total Risk Factor Score Risk Level Prophylaxis Regimen 0-1 Low Early ambulation 2 Moderate Order ONE of the following: *Sequential Compression Device (SCD) *Heparin 5000 units SQ BID 3-4 Higher Order ONE of the following medications: *Heparin 5000 units SQ TID *Enoxaparin/Lovenox 40 mg SQ daily (WT < 150 kg, CrCl > 30 mL/min) *Enoxaparin/Lovenox 30 mg SQ daily (WT < 150 kg, CrCl > 10-29 mL/min) *Enoxaparin/Lovenox 30 mg SQ BID (WT < 150 kg, CrCl > 30 mL/min) AND/OR *Sequential Compression Device (SCD) 5 or more Highest Order ONE of the following medications: *Heparin 5000 units SQ TID (Preferred with Epidurals) *Enoxaparin/Lovenox 40 mg SQ daily (WT < 150 kg, CrCl > 30 mL/min) *Enoxaparin/Lovenox 30 mg SQ daily (WT < 150 kg, CrCl > 10-29 mL/min) *Enoxaparin/Lovenox 30 mg SQ BID (WT < 150 kg, CrCl > 30 mL/min) AND *Sequential Compression Device (SCD) Assessment and Plan - Assessment (1) Closed compression fracture of L4 lumbar vertebra Code(s): S32.040A - Wedge compression fracture of fourth lumbar vertebra, initial encounter for closed fracture Status: Acute Plan: Acute L4 compression fracture Lower back pain 78-year-old female patient with past medical history which includes chronic lower back pain which worsened after lifting a heavy mattress. Patient was treated by outpatient provider Dr. Rizzo on 03/03/18 with spinal injection which did not relieve the pain therefore she proceeded to the emergency department initially on 03/07/2018 for further evaluation and treatment. At that time patient was found to have a mild acute L4 compression fracture as well as nonacute L5 superior endplate compression fracture and was discharged home with TLSO brace. Patient returned to the [facility] emergency department 03/10/2018 with complaints of increasing back pain. - Consult was placed to neurosurgery Dr. Amaya who recommends upright flexion extension x-rays -Lumbar flexion-extension x-rays reviewed and reveals 1. Normal alignment of the L4 vertebral body in neutral, flexion, extension. 2. Grade 1 anterolisthesis of L5 in flexion only. - Consultation placed to physical therapy - Continue TLSO brace while out of bed - per Neurosurgery note: flexion extension xrays reviewed by Dr. Amaya clear to dc from NRS standpoint she may follow up in the office in 2 months with follow up xrays lumbar spine dw pt activity restrictions lumbar brace when oob Seizure disorder Continue patient's home primidone 250 mg p.o. nightly, Tegretol 200 mg p.o. 3 times daily and gabapentin 300 mg p.o. twice daily Hypertension will hold patient's lisinopril 10 mg p.o. daily, as she has had episodes of hypotension Paroxysmal SVT will hold patient's home metoprolol 25 mg twice daily, as she has had episodes of bradycardia DVT prophylaxis with SCDs Patient offered SNF. Patient planning to go to [place] to stay with family and is refusing SNF placement. DC home with family and HHC/PT on a heart healthy diet Patient to wear TLSO brace when OOB patient to follow up with PCP in 1 week and Neurosurgery in 2 months <German Flanagan - Last Filed: 03/21/18 22:35> History of Present Illness Primary Care Physician: UNKNOWN - Diagnosis (1) Closed compression fracture of L4 lumbar vertebra PMFSH - Medical History Medical History: Medical History (Last Reviewed 03/11/18 @ 08:59 by Scottie Rolle) Chronic back pain HBP (high blood pressure) History of hysterectomy Pacemaker Seizure - Family History Family History: Family History (Last Updated 03/11/18 @ 08:40 by Eric Amaya MD) Other Family history non-contributory No pertinent family history Medications and Allergies Active Medications: Active Medications Carbamazepine (Tegretol) 200 mg PO BID [facility] Last Admin: 03/11/18 08:30 Dose: 200 mg Gabapentin (Neurontin) 300 mg PO BID [facility] Last Admin: 03/11/18 08:30 Dose: 300 mg Dextrose/Sodium Chloride (D5w/Normal Saline Inj) 1,000 mls @ 84 mls/hr IV.CONT .[id number] [facility] Last Infusion: 03/11/18 13:32 Dose: Infused Ceftriaxone Sodium 1,000 mg/ (Sodium Chloride) 100 mls @ 200 mls/hr IV.SIG Q24H [facility] Last Infusion: 03/10/18 22:30 Dose: Infused Morphine Sulfate (Morphine Inj) 2 mg IV.PUSH Q4H PRN PRN Reason: pain level 3-10 Sodium Chloride (Ns Flush) 2 ml IV.FLUSH BID [facility] Last Admin: 03/11/18 08:30 Dose: Not Given Sodium Chloride (Ns Flush) 2 ml IV.FLUSH PRN PRN PRN Reason: FLUSH AFTER USING IV ACCESS Results - Labs CBC & Chem 7: 03/10/18 16:00 03/11/18 03:20 Caprini VTE Risk Assessment Caprini Risk Assessment Model: Point Value = 1 Point Value = 2 Point Value = 3 Point Value = 5 Age 41-60 Minor surgery BMI > 25 kg/m2 Swollen legs Varicose veins or History of unexplained or recurrent spontaneous Oral contraceptives or hormone replacement Sepsis (< 1 month) Serious lung disease, including pneumonia (< 1 month) Abnormal pulmonary function Acute myocardial infarction Congestive heart failure (< 1 month) History of inflammatory bowel disease Medical patient at bed rest Age 61-74 Arthroscopic surgery Major open surgery (> 45 min) Laparoscopic surgery (> 45 min) Malignancy Confined to bed (> 72 hours) Immobilizing plaster cast Central venous access Age >= 75 History of VTE Family history of VTE Factor V Leiden Prothrombin [id number] Lupus anticoagulant Anticardiolipin antibodies Elevated serum homocysteine Heparin-induced thrombocytopenia Other congenital or acquired thrombophilia Stroke (< 1 month) Elective arthroplasty Hip, pelvis, or leg fracture Acute spinal cord injury (< 1 month) Prophylaxis Regimen: Total Risk Factor Score Risk Level Prophylaxis Regimen 0-1 Low Early ambulation 2 Moderate Order ONE of the following: *Sequential Compression Device (SCD) *Heparin 5000 units SQ BID 3-4 Higher Order ONE of the following medications: *Heparin 5000 units SQ TID *Enoxaparin/Lovenox 40 mg SQ daily (WT < 150 kg, CrCl > 30 mL/min) *Enoxaparin/Lovenox 30 mg SQ daily (WT < 150 kg, CrCl > 10-29 mL/min) *Enoxaparin/Lovenox 30 mg SQ BID (WT < 150 kg, CrCl > 30 mL/min) AND/OR *Sequential Compression Device (SCD) 5 or more Highest Order ONE of the following medications: *Heparin 5000 units SQ TID (Preferred with Epidurals) *Enoxaparin/Lovenox 40 mg SQ daily (WT < 150 kg, CrCl > 30 mL/min) *Enoxaparin/Lovenox 30 mg SQ daily (WT < 150 kg, CrCl > 10-29 mL/min) *Enoxaparin/Lovenox 30 mg SQ BID (WT < 150 kg, CrCl > 30 mL/min) AND *Sequential Compression Device (SCD) Assessment and Plan - Assessment (1) Closed compression fracture of L4 lumbar vertebra Code(s): S32.040A - Wedge compression fracture of fourth lumbar vertebra, initial encounter for closed fracture Status: Acute - Attending Attestation Patient examined. Assessment and plan formulated with Sharri HART I agree with the above.
--- NOTE | 2018-03-11 10:14 | P.PNNS ---
Subjective Interval history: doing much better this morning, pain much better. denies new neurological complaints Physical Exam Vital signs: Vital Signs 03/10/18 13:13 03/10/18 15:53 03/10/18 16:00 Temperature 98.6 F 97.8 F Pulse Rate 76 59 L 59 L Respiratory Rate 18 18 Blood Pressure 132/67 154/67 H Pulse Oximetry 98 98 99 03/10/18 16:20 03/10/18 18:21 03/10/18 20:00 Temperature 97.8 F Pulse Rate 60 Respiratory Rate 17 16 Blood Pressure 140/83 Pulse Oximetry 98 95 03/10/18 21:02 03/10/18 22:29 03/11/18 00:00 Temperature 97.7 F 97.7 F Pulse Rate 63 73 Respiratory Rate 16 17 Blood Pressure 141/62 H 98/56 L Pulse Oximetry 94 L 95 95 03/11/18 05:10 03/11/18 07:32 Temperature 98.4 F 97.5 F L Pulse Rate 66 65 Respiratory Rate 16 20 Blood Pressure 114/53 L 113/55 L Pulse Oximetry 96 99 Intake & Output 03/10/18 03/11/18 03/11/18 18:59 06:59 18:59 Intake Total 100 / 100 Output Total 500 / 500 Balance -500 / -500 100 / 100 Weight 68.039 kg Intake: IV 100 / 100 Rocephin Inj 1,000 MG In NS Inj 100 / 100 100 ML @ 200 mls/hr IV.SIG Q24H [facility] Rx#:[id number] Output: Urine 500 / 500 Other: # Voids 1 2 Date of Last Bowel Movement 03/10/18 Narrative: GENERAL: In bed appears comfortable in NAD SKIN: Warm and dry. HEAD: Atraumatic. Normocephalic. EYES: Pupils equal and round. No scleral icterus. No injection or drainage. ENT: No nasal bleeding or discharge. Mucous membranes pink and moist. NECK: Trachea midline. No JVD. CARDIOVASCULAR: Regular rate and rhythm. RESPIRATORY: No accessory muscle use. Clear to auscultation. Breath sounds equal bilaterally. GASTROINTESTINAL: Abdomen soft, non-tender, nondistended. Hepatic and splenic margins not palpable. MUSCULOSKELETAL: Extremities without clubbing, cyanosis, or edema. No obvious deformities. NEUROLOGICAL: Awake and alert. No obvious cranial nerve deficits. Motor grossly within normal limits. Five out of 5 muscle strength in the arms and legs. Normal speech. PSYCHIATRIC: Appropriate mood and affect; insight and judgment normal. Assessment and Plan - Plan Impression 78 y/o female returns for intractable low back pain CT L spine 03/07 with mild compression fracture L4 pain much improved today 03/11 plan: flexion extension xrays reviewed by Dr. Jose Luis pichardo to dc from NRS standpoint she may follow up in the office in 2 months with follow up xrays lumbar spine dw pt activity restrictions lumbar brace when oob
[2018-03-11 11:32] VITALS: BP 147/67; PULSE 83; O2SAT 96
--- NOTE | 2018-03-11 12:31 | P.DCO ---
- Physical Therapy Order: Evaluate and treat - Occupational Therapy Order: Evaluate and treat - Home Health Nursing Order: Medical education - Case Management Consult Yes - Certification I have seen patient Lorelei Weiner on 03/11/18. My clinical findings support the need for the requested home health care services because: Limited mobility due to disease progression I certify that my clinical findings support that this patient is homebound because: Unsteady gait/balance
== END 2018-03-11 15:14 | disposition home health service (06) ==
LOC: NEDA 13:09 → NEPD 13:09 → NEDA 20:39 → NEPFCDU 20:40 → N07 03-11 11:01 → NEPFCDU 03-11 11:07
PROVIDERS: ADMIT Hospitalist; ATTEND Hospitalist